=== PATIENT | male | born 1990 | race African-American/Black ===

== ENCOUNTER 2017-08-13 04:09 | Emergency (ER) | payer OTHER, SELFPAY | END 2017-08-13 07:24 | disposition home or self-care (01) | PROVIDERS: Emergency Provider Emergency Medicine; Family Provider Internal Medicine Gastroenterology; PCP Family Medicine; Visit Provider Emergency Medicine | DX: G43.909 Migraine, unspecified, not intractable, without status migrainosus (principal) | CPT/HCPCS: 96361; 96374; 96375; 99152; 99285; J1100; J1885; J2704; J2765 ==

== ENCOUNTER → 2018-02-11 18:11 | Outpatient (CLI) | payer OTHER, SELFPAY ==
[2018-02-11 20:20] LABS: Hep C Virus Ab w/Reflex Quant NEGATIVE s/c (NEGATIVE)
[2018-02-11 21:11] LABS: Urine N gonorrhoeae NOT DETECTED
[2018-02-11 21:21] LABS: Urine Chlamydia NOT DETECTED
[2018-02-13 14:02] LABS: Hepatitis B Core Antibody Nonreactive (Nonreactive)
[2018-02-16 20:13] LABS: HSV 1 IgM Screen Positive (Negative); HSV 2 IgM Screen Negative (Negative)
== END ==
PROVIDERS: Family Provider Internal Medicine Gastroenterology; PCP Family Medicine; Visit Provider Physician Assistant
DX: Z11.3 Encounter for screening for infections with a predominantly sexual mode of transmission (principal)
CPT/HCPCS: 36415; 86694; 86704; 86803; 87491; 87591

== ENCOUNTER → 2019-08-08 12:48 | Outpatient (CLI) | payer OTHER, SELFPAY ==
--- NOTE | 2019-08-08 12:50 | DI.RAD.S_ITS ---
PROCEDURE: XR KNEE RT 3V INDICATIONS: right knee pain TECHNIQUE: 3 views of the knee were acquired. COMPARISON: [facility], , KNEE 3V RIGHT, 10/25/2016, 22:07. [facility], KNEE 1-2 VIEWS RIGHT, 10/25/2016, 20:02. FINDINGS: Bones: No fractures or dislocations. No suspicious bony lesions. Soft tissues: There does appear to be a moderate suprapatellar joint effusion. No suspicious soft tissue calcifications. IMPRESSION: No fracture found. Soft tissue prominence in the suprapatellar region is suggestive of joint effusion or soft tissue edema. Dictated by: Daniele Dodge M.D. on 08/08/2019 at 13:06 Approved by: Daniele Dodge M.D. on 08/08/2019 at 13:08
== END ==
PROVIDERS: Family Provider Internal Medicine Gastroenterology; PCP Family Medicine; Referring Provider Physician Assistant; Visit Provider Physician Assistant
DX: M25.561 Pain in right knee (principal)
CPT/HCPCS: 73562

== ENCOUNTER 2019-09-18 21:16 | Emergency (ER) | payer OTHER, SELFPAY ==
[2019-09-18 21:47] VITALS: BP 136/84; PULSE 114; RESP 20; TEMP 38.3; O2SAT 95; BMI 25.8
[2019-09-18 22:16] LABS: Add Manual Diff / Slide Review NO; Basophils Absolute Auto 0 /uL (0-100); Basophils Percent Auto 0.3 % (0-2); Eosinophils Absolute Auto 0 /uL (0-450); Eosinophils Percent Auto 0.3 % (2-4); Hematocrit 39.7 % (41-53); Lymphocytes Absolute Auto 1200 /uL (1100-4500); Lymphocytes Percent Auto 9.7 % (25-40); Mean Corpuscular HGB Conc 35.2 % (30-36); Mean Corpuscular Hemoglobin 29.9 PG (26-34); Mean Corpuscular Volume 85.1 fL (80-100); Monocytes Absolute Auto 1800 /uL (0-900); Monocytes Percent Auto 14.3 % (3-14); Neutrophils Absolute Auto 9400 /uL (1500-7000); Neutrophils Percent Auto 75.4 % (50-75); Platelet Count 486 X10^3/uL (150-400); Red Blood Cell Count 4.67 X10^6/uL (4.5-5.9); Red Cell Distribution Width 13.3 % (11.6-14.8); White Blood Cell Count 12.5 X10^3/uL (4.5-11.0)
[2019-09-18] MEDS: SODIUM CHLORIDE 0.9% 1,000 ML 1000 ML IV (22:16)
[2019-09-18] MEDS: ONDANSETRON 4 MG/2 ML INJ IV (22:16)
[2019-09-18 22:20] LABS: Lactate (Lactic Acid) 0.7 mmol/L (0.7-2.1)
[2019-09-18 22:26] LABS: Alanine Aminotransferase 14 IU/L (<50); Alkaline Phosphatase 56 U/L (38-126); Aspartate Aminotransferase 20 IU/L (17-59); BUN Creatinine Ratio 13.2 (6-22); Bilirubin Total 0.5 mg/dL (0.2-1.3); Blood Urea Nitrogen 15 mg/dL (9-20); Calcium 8.9 mg/dL (8.4-10.2); Carbon Dioxide 26 mmol/L (22-32); Chloride 92 mmol/L (98-107); Estimated Glomerular Filt Rate > 60.0 mL/min (>60); Globulin 4.2 g/dL (1.7-4.1); Glucose 119 mg/dL (70-100); HEMOLYSIS < 15 (0-50); Lipase 45 U/L (23-300); Magnesium 1.9 mg/dL (1.6-2.3); Potassium 4.1 mmol/L (3.4-5.1); Sodium 133 mmol/L (137-145); Total Protein 8.2 g/dL (6.3-8.2)
[2019-09-18 22:44] LABS: Procalcitonin 0.14 ng/mL (<0.5)
[2019-09-18 23:02] LABS: Bacteria Urine None Seen
[2019-09-18 23:03] LABS: Appearance Urine UA CLEAR; Bilirubin Urine UA NEGATIVE (NEGATIVE); Color Urine UA YELLOW; Glucose Urine UA NEGATIVE (Negative); Ketones Urine UA 2+ (NEGATIVE); Leukocyte Esterase Urine UA NEGATIVE (NEGATIVE); Nitrite Urine UA NEGATIVE (Negative); Occult Blood Urine UA 3+ (Negative); Protein Urine UA 1+ (Negative); Urobilinogen Urine UA 0.2 E.U./dL (0.2)
[2019-09-18 23:13] LABS: Culture Indicated Urine Cult Not Indicated; RBC Urine 1-5/HPF (0-5/HPF); WBC Urine 0-1/HPF (0-5/HPF)
--- NOTE | 2019-09-18 23:46 | ED.GENADULT ---
HPI - General Adult General Chief complaint: Abdominal Pain Stated complaint: Chrons Disease, states flaring up Time Seen by Provider: 09/18/19 21:49 Source: patient Mode of arrival: Ambulatory History of Present Illness HPI narrative: 29-year-old gentleman with a 15 year history of ulcerative colitis presents with increasing abdominal pain, 20 lb weight loss, bloody diarrhea, dizziness and lightheadedness all getting worse for the last 2 weeks. His 1st episode of Crohn's disease was in his early teens. He was on prednisone and Rowasa enemas with minimal effect. Remicade eventually lead to relief of symptoms and remission for a number of years. In his late teens he had another episode that again required Remicade, and again resulted in remission. His last debt and budget counselor was Dr. Salgado however he has not seen him nor needed to for the last 3 years. He currently has an appointment to establish care with Dr Bradley indwelling him this Friday. Related Data Home Medications Medication Instructions Recorded Confirmed loratadine 10 mg tablet 10 mg PO DAILY 09/17/19 09/17/19 Previous Rx's Medication Instructions Recorded mesalamine with cleansing wipe [address] BEDTIME #4 each 09/17/19 gram/60 mL kit prednisone 40 mg PO DAILY #60 tab 09/19/19 Allergies Allergy/AdvReac Type Severity Reaction Status Date / Time No Known Drug Allergies Allergy Verified 09/17/19 14:23 Review of Systems Review of Systems Narrative: Pertinent positive and negative findings as per HPI Remainder of review of systems is otherwise unremarkable for ENT: No sore throat, neck pain, ear pain CV: Chest pain, palpitations, dyspnea on exertion Respiratory: Cough, wheeze, dyspnea : Dysuria, hematuria, flank pain MS: numbness, joint swelling or warmth Skin: Rashes, nonhealing lesions Psych: Depression, anxiety, suicidal ideation Heme: Easy bruising or bleeding Patient History Medical History (Updated 09/19/19 @ 00:50 by Radha Mckeon MD) Migraine headache (Acute) Ulcerative colitis without complications (Acute 11/08/16) Social History Smoking Status: Never smoker Smoking Status: Never smoker alcohol intake frequency: 0-2 drinks per day Substance Use Type: does not use Exam Narrative Exam Narrative: General: Healthy appearing, in no acute distress. Able to give a complete and coherent history. Well-nourished well-developed HEENT: Dry mucous membranes, normal sclera with reactive pupils, Neck: , supple Respiratory: Lungs are clear to auscultation, no wheezing no rales no rhonchi. Full and symmetrical air movement Cardiac: Tachycardia with Regular rate and rhythm no murmurs no bruits Abdomen: Soft diffusely tender in all 4 quadrants without rebound or guarding and hyperactive bowel tones, no flank pain Skin: Warm and dry, no rashes Neurologic: Grossly neurologically intact with no obvious asymmetries or abnormalities Extremities: No trauma, well perfused Psych: Cooperative, appropriate insight and affect Initial Vital Signs Initial Vital Signs: Vital Signs Temperature 101.0 F H 09/18/19 21:47 Pulse Rate 114 H 09/18/19 21:47 Respiratory Rate 20 09/18/19 21:47 Blood Pressure 136/84 09/18/19 21:47 Pulse Oximetry 95 09/18/19 21:47 Course Orders Ordered: ED Orders 09/18/19 22:02 Complete Blood Count AUTO DIFF Stat Comprehensive Metabolic Panel Stat Lactate (Lactic Acid) Stat Lipase Stat Magnesium Stat Procalcitonin Stat 09/18/19 22:30 Blood Culture Stat 09/18/19 22:55 Urinalysis and Microscopic Stat Sodium Chloride (Normal Saline 0.9%) 1,000 mls @ 1,000 mls/hr IV BOLUS ONE Stop: 09/19/19 01:41 Last Admin: 09/19/19 00:49 Dose: 1,000 mls/hr Documented by: Discontinued Medications Sodium Chloride (Normal Saline 0.9%) 1,000 mls @ 1,000 mls/hr IV BOLUS ONE Stop: 09/18/19 22:48 Last Infusion: 09/18/19 23:42 Dose: 0 mls/hr Documented by: Admin: 09/18/19 22:16 Dose: 1,000 mls/hr Documented by: BEAN Methylprednisolone (Solu-Medrol 125 Mg Vial) 80 mg IV NOW ONE Stop: 09/19/19 00:22 Last Admin: 09/19/19 00:34 Dose: 80 mg Documented by: BEAN Ondansetron HCl (Zofran) 4 mg IV NOW ONE Stop: 09/18/19 21:50 Last Admin: 09/18/19 22:16 Dose: 4 mg Documented by: BEAN Vital Signs Vital signs: Vital Signs - 8 hr 09/18/19 21:47 09/19/19 00:29 Temperature 101.0 F H 100.4 F H Pulse Rate 114 H 96 H Respiratory Rate 20 20 Blood Pressure 136/84 Blood Pressure [Left Arm] 116/64 Pulse Oximetry 95 96 Medical Decision Making Medical Records Medical records reviewed: Yes I reviewed the patient's medical records. Lab Data Lab results reviewed: Yes I reviewed the patient's lab results. Result diagrams: 09/18/19 22:02 09/18/19 22:02 Labs: Lab Results 09/18/19 09/18/19 09/18/19 Range/Units 22:02 22:02 22:02 WBC 12.5 H (4.5-11.0) X10^3/uL RBC 4.67 (4.5-5.9) X10^6/uL Hgb 14.0 (13.5-17.5) g/dL Hct 39.7 L (41-53) % MCV 85.1 (80-100) fL MCH 29.9 (26-34) PG MCHC 35.2 (30-36) % RDW 13.3 (11.6-14.8) % Plt Count 486 H (150-400) X10^3/uL Neut % (Auto) 75.4 H (50-75) % Lymph % (Auto) 9.7 L (25-40) % [place] % (Auto) 14.3 H (3-14) % Eos % (Auto) 0.3 L (2-4) % Baso % (Auto) 0.3 (0-2) % Neut # (Auto) 9400 H (0919-6823) /uL Lymph # (Auto) 1200 (4358-7664) /uL [place] # (Auto) 1800 H (0-900) /uL Eos # (Auto) 0 (0-450) /uL Baso # (Auto) 0 (0-100) /uL Sodium 133 L (137-145) mmol/L Potassium 4.1 (3.4-5.1) mmol/L Chloride 92 L (98-107) mmol/L Carbon Dioxide 26 (22-32) mmol/L BUN 15 (9-20) mg/dL Creatinine 1.14 (0.66-1.25) mg/dL Estimated GFR > 60.0 (>60) mL/min BUN/Creatinine Ratio 13.2 (6-22) Glucose 119 H (70-100) mg/dL Lactate (0.7-2.1) mmol/L Calcium 8.9 (8.4-10.2) mg/dL Magnesium (1.6-2.3) mg/dL Total Bilirubin 0.5 (0.2-1.3) mg/dL AST 20 (17-59) IU/L ALT 14 (<50) IU/L Alkaline Phosphatase 56 (38-126) U/L Total Protein 8.2 (6.3-8.2) g/dL Albumin 4.0 (3.5-5.0) g/dL Globulin 4.2 H (1.7-4.1) g/dL Albumin/Globulin Ratio 1.0 (1.0-2.8) Lipase (23-300) U/L Procalcitonin 0.14 (<0.5) ng/mL Urine Color Urine Appearance Urine pH (4.5-8.0) Ur Specific [place] (1.000-1.035) Urine Protein (Negative) Urine Glucose (UA) (Negative) g/dL Urine Ketones (NEGATIVE) Urine Occult Blood (Negative) Urine Nitrate (Negative) Urine Bilirubin (NEGATIVE) Urine Urobilinogen (0.2) E.U./dL Ur Leukocyte Esterase (NEGATIVE) Urine RBC (0-5/HPF) Urine WBC (0-5/HPF) Urine Bacteria (None) Ur Culture Indicated? 09/18/19 09/18/19 09/18/19 Range/Units 22:02 22:02 22:55 WBC (4.5-11.0) X10^3/uL RBC (4.5-5.9) X10^6/uL Hgb (13.5-17.5) g/dL Hct (41-53) % MCV (80-100) fL MCH (26-34) PG MCHC (30-36) % RDW (11.6-14.8) % Plt Count (150-400) X10^3/uL Neut % (Auto) (50-75) % Lymph % (Auto) (25-40) % [place] % (Auto) (3-14) % Eos % (Auto) (2-4) % Baso % (Auto) (0-2) % Neut # (Auto) (8402-5455) /uL Lymph # (Auto) (8422-2784) /uL [place] # (Auto) (0-900) /uL Eos # (Auto) (0-450) /uL Baso # (Auto) (0-100) /uL Sodium (137-145) mmol/L Potassium (3.4-5.1) mmol/L Chloride (98-107) mmol/L Carbon Dioxide (22-32) mmol/L BUN (9-20) mg/dL Creatinine (0.66-1.25) mg/dL Estimated GFR (>60) mL/min BUN/Creatinine Ratio (6-22) Glucose (70-100) mg/dL Lactate 0.7 (0.7-2.1) mmol/L Calcium (8.4-10.2) mg/dL Magnesium 1.9 (1.6-2.3) mg/dL Total Bilirubin (0.2-1.3) mg/dL AST (17-59) IU/L ALT (<50) IU/L Alkaline Phosphatase (38-126) U/L Total Protein (6.3-8.2) g/dL Albumin (3.5-5.0) g/dL Globulin (1.7-4.1) g/dL Albumin/Globulin Ratio (1.0-2.8) Lipase 45 (23-300) U/L Procalcitonin (<0.5) ng/mL Urine Color Yellow Urine Appearance Clear Urine pH 6.0 (4.5-8.0) Ur Specific [place] 1.020 (1.000-1.035) Urine Protein 1+ H (Negative) Urine Glucose (UA) Negative (Negative) g/dL Urine Ketones 2+ H (NEGATIVE) Urine Occult Blood 3+ H (Negative) Urine Nitrate Negative (Negative) Urine Bilirubin Negative (NEGATIVE) Urine Urobilinogen 0.2 (0.2) E.U./dL Ur Leukocyte Esterase Negative (NEGATIVE) Urine RBC 1-5/hpf (0-5/HPF) Urine WBC 0-1/hpf (0-5/HPF) Urine Bacteria None seen (None) Ur Culture Indicated? Cult not indicated Urine Dip Bedside Urine Glucose Negative Bedside Urine Bilirubin + 1 Bedside Urine Ketone +++ 80 Urine Specific [place] 1.025 Bedside Urine Occult Blood ++ Bedside Urine pH 6.0 Bedside Urine Protein + 30 Bedside Urine Urobilinogen - Negative Bedside Urine Nitrite - Negative Bedside Urine Leukocytes - Negative Esterase Point of care testing: Urine Dip Bedside Urine Glucose Negative Bedside Urine Bilirubin + 1 Bedside Urine Ketone +++ 80 Urine Specific [place] 1.025 Bedside Urine Occult Blood ++ Bedside Urine pH 6.0 Bedside Urine Protein + 30 Bedside Urine Urobilinogen - Negative Bedside Urine Nitrite - Negative Bedside Urine Leukocytes - Negative Esterase MDM Narrative Medical decision making narrative: 29-year-old gentleman with a long history of ulcerative colitis. Presents after 2 weeks of weight loss, bloody diarrhea and increasing pain and tachycardia. Labs are relatively reassuring. He does have a an appointment with gastroenterology in 1 week. Brief phone call with Dr. Mcknight, one of Dr. Bradley's partners. His recommendation in this acute flare setting is prednisone. Will give him 80 mg of IV Solu-Medrol along with 2 L of fluid today. Will have him continue with 40 mg of prednisone daily and will give him a large prescription of 10 mg size pills in anticipation of tapering needs. He will keep his appointment at the end of the week. Does note that in the past prednisone has not been helpful however will need to talk with the debt and budget counselor [facility] again. Have encouraged him to return to the emergency department if he is having worsening symptoms. He is safe for home discharge at this time Discharge Plan Departure Patient Disposition: Home Clinical Impression: Ulcerative colitis without complications Qualifiers: Ulcerative colitis location: unspecified ulcerative colitis location Qualified Code(s): K51.90 - Ulcerative colitis, unspecified, without complications Instructions: DI for Ulcerative Colitis Activity Restrictions/Additional Instructions: Thank you for coming in today. In the emergency room you received 2 L of fluid and 80 mg of IV Solu-Medrol. After discussion with Dr. Mcknight, gastroenterology, he recommends 40 mg of prednisone daily for the next week for the acute colitis flare. I have electronically transmitted a prescription for prednisone to [facility] in [place] free to [employer] pickler tomorrow. After you meet with on Friday she will help you taper off the prednisone and determine if a return to Humira or another biologic will be most appropriate for you. I have given you a copy of your ER note from today which includes all of your lab tests and studies done today to share with . If you feel like you are getting worse please feel free to return to the emergency department and I am happy to re-evaluate I hope you feel better Prescriptions: New prednisone 10 mg tablet 40 mg PO DAILY Qty: 60 RF: 0 No Action loratadine [Allergy Relief (loratadine)] 10 mg tablet 10 mg PO DAILY RF: 0 mesalamine with cleansing wipe [Rowasa] 4 gram/60 mL enema kit [address] BEDTIME Qty: 4 RF: 1 Referrals: Cameron Galvez MD [Primary Care Provider] -
[2019-09-19 00:29] VITALS: BP 116/64; PULSE 96; RESP 20; TEMP 38; O2SAT 96
[2019-09-19] MEDS: methylPREDNISolone 125 MG/2 ML VIAL 80 MG IV (00:34)
[2019-09-19] MEDS: SODIUM CHLORIDE 0.9% 1,000 ML 1000 ML IV (00:49)
[2019-09-19 02:13] VITALS: BP 111/58; PULSE 91; RESP 18; TEMP 38.2; O2SAT 96
--- NOTE | 2019-09-20 18:43 | PC.NURSE ---
Pt called stating he started Prednisone for ulcerative colitis prescribed by Dr Mckeon which has given him severe hiccups. Dr Mckeon made aware. Spoke to pt to confirm Pharmacy--[facility] in [place]. Left message on machine with call back number due to closure for holiday. Called in Haldol 2mg PO q6hr PRN for severe hiccups #20 + 0 refills & Zofran 4mg ODT q8hr PRN for nausea #20 + 0 refills.
== END 2019-09-19 02:13 | disposition home or self-care (01) ==
PROVIDERS: Emergency Provider Emergency Medicine; Family Provider Internal Medicine Gastroenterology; PCP Family Medicine
DX: K51.90 Ulcerative colitis, unspecified, without complications (principal); R63.4 Abnormal weight loss; A08.8 Other specified intestinal infections; R00.0 Tachycardia, unspecified
CPT/HCPCS: 36415; 80053; 81001; 81003; 83605; 83690; 83735; 84145; 85025; 87040; 96361; 96374; 96375; 99284; J2405; J2930